=== PATIENT | female | born 1950 | race Caucasian/White ===

== ENCOUNTER → 2016-11-03 | Outpatient (CLI) | payer MEDICARE ==
--- NOTE | 2016-11-03 11:44 | US ---
EXAMINATION TYPE: US carotid duplex BILAT DATE OF EXAM: 11/03/2016 9:54 AM COMPARISON: NONE CLINICAL HISTORY: 66-year-old female I65.29 STENOSIS OF UNSPECIFIED CAROTID ARTERY. No symptoms, no h /o stroke. TECHNIQUE: Carotid duplex ultrasound examination. Indirect Doppler criteria was utilized. FINDINGS: Engel scale images show mild atherosclerotic plaque at both bifurcations. EXAM MEASUREMENTS: RIGHT: Peak Systolic Velocity (PSV) cm/sec ----- Right CCA: 85.6 ----- Right ICA: 113.1 ----- Right ECA: 99.5 ICA/CCA ratio: 1.3 RIGHT: End Diastole cm/sec ----- Right CCA: 30.8 ----- Right ICA: 23.7 ----- Right ECA: 20.2 LEFT: Peak Systolic Velocity (PSV) cm/sec ----- Left CCA: 79.3 ----- Left ICA: 96.1 ----- Left ECA: 87.7 ICA/CCA ratio: 1.2 LEFT: End Diastole cm/sec ----- Left CCA: 26.6 ----- Left ICA: 38.2 ----- Left ECA: 14.0 VERTEBRALS (direction of flow): Right Vertebral: Antegrade Left Vertebral: Antegrade IMPRESSION: No hemodynamically significant stenosis appreciated in either internal carotid artery. Criteria for Assigning % of Stenosis / Diameter reduction (Estimation based on the indirect measurements of the internal carotid artery velocities (ICA PSV). 1. Normal (no stenosis)=ICA PSV < 125 cm/s: ratio < 2.0: ICA EDV<40 cm/s. 2. Less than 50% stenosis=ICA PSV < 125 cm/s: ratio < 2.0: ICA EDV<40 cm/s. 3. 50 to 69% stenosis=ICA PSV of 125 to 230 cm/s: ration 2.0 ? 4.0: ICA EDV 40-100 cm/s. 4. Greater than 70% stenosis to near occlusion= ICA PSV > 230 cm/s: ratio > 4.0: ICA EDV > 100 cm/s. 5. Near occlusion= ICA PSV velocities may be low or undetectable: variable ratio and ICA EDV. 6. Total occlusion=unable to detect flow.
== END | disposition home or self-care (01) ==
LOC: RADUSWWP 09:31
PROVIDERS: ATTEND Family Medicine
DX: I65.29 Occlusion and stenosis of unspecified carotid artery (principal)
CPT/HCPCS: 93880

== ENCOUNTER → 2017-05-18 | Outpatient (CLI) | payer MEDICARE ==
--- NOTE | 2017-05-18 10:15 | BD ---
EXAMINATION TYPE: MG DEXA axial skeleton. DATE OF EXAM: 05/18/2017 COMPARISON: 03/27/2015 CLINICAL HISTORY: 66-year-old female osteopenia Height: 62.7 IN Weight: 178 LBS FRAX RISK QUESTIONS: Alcohol (3 or more units per day): NO Family History (Parent hip fracture): NO Glucocorticoids (More than 3mos): NO (Ex: prednisone, prednisolone, methylprednisolone, dexamethasone, and hydrocortisone). History of Fracture in Adulthood: YES RT ANKLE AGE 64 Secondary Osteoporosis: 1. Type 1 Diabetes: NO 2. Hyperthyroidism: NO 3. Menopause before 45: YES HYSTERECTOMY AGE 31 4. Malnutrition: NO 5. Chronic liver disease: NO Rheumatoid Arthritis: NO Current Tobacco Use: NO RISK FACTORS HISTORY OF: Surgery to Spine: YES L SPINE When: 2 SURGERIES ONE 30 YEARS AGO AND THEN 20 YEARS AGO Active: YES Postmenopausal woman: YES AGE 31 Lost more than 2 inches in height since high school: YES 3" MEDICATIONS: Additional Medications: VIT D, LISINOPRIL, NORCO, PRILOSEC EXAM MEASUREMENTS: Bone mineral densitometry was performed using the [employer] System. PT HAD 2 L SPINE SURGERIES. Bone mineral density about the R hip (g/cm2): 0.819 Bone mineral density about the L hip (g/cm2): 0.829 T Score values are as follows: -----R Neck: -1.6 -----L Neck: -1.5 -----R Total: -1.6 -----L Total: -1.3 Bone mineral density has: Increased 0.9% since study of: 03/27/2015 IMPRESSION: Osteopenia (T Score between -2.5 and -1 as noted by T score values in both hips). There is slightly increased risk of fracture and the patient may be considered for treatment. Re-Screen 2-5 years. NOTE: T-SCORE=SD OF THE YOUNG ADULT MEAN.
--- NOTE | 2017-05-18 11:19 | MM ---
Reason for exam: screening (asymptomatic). Last mammogram was performed 1 year and 1 month ago. History: Patient is postmenopausal and is nulliparous. Family history of breast cancer in mother at age 50. Benign excisional biopsy of the right breast, 1979. Took estrogen for 1 year beginning at age 39. Physical Findings: A clinical breast exam by your physician is recommended on an annual basis and results should be correlated with mammographic findings. MG 3D Screening Mammo W/Cad Bilateral CC and MLO view(s) were taken. Prior study comparison: April 30, 2016, bilateral MG 3d screening mammo w/cad. March 27, 2015, bilateral MG screening mammo w CAD. There are scattered fibroglandular densities. No significant changes when compared with prior studies. ASSESSMENT: Benign, BI-RAD 2 RECOMMENDATION: Routine screening mammogram of both breasts in 1 year.
== END | disposition home or self-care (01) ==
LOC: RADMAMWWP 07:03
PROVIDERS: ATTEND Family Medicine
DX: Z12.31 Encounter for screening mammogram for malignant neoplasm of breast (principal); M85.88 Other specified disorders of bone density and structure, other site
CPT/HCPCS: 77080; 77063; G0202

== ENCOUNTER → 2017-12-07 | Outpatient (CLI) | payer MEDICARE ==
--- NOTE | 2017-12-07 13:05 | NM ---
EXAMINATION TYPE: NM bone 3 phase DATE OF EXAM: 12/07/2017 COMPARISON: X-ray 11/27/2017 HISTORY: Painful left knee Triple phase bone scintigraphy was performed following the injection of 24.9 mCi Tc 99m MDP. Immedia te images and 3 hours post injection images acquired. FINDINGS: There are bilateral photopenic defects involving the knees. There is asymmetric increased blood flow to the left knee prostheses. There is increased soft tissue uptake on blood pool images. Delayed images demonstrate fairly symmetric uptake bilaterally. IMPRESSION: Findings are nonspecific. There is increased flow and soft tissue uptake surrounding the left knee. I f there is concern for loosening or infection correlate with WBCs tagged study.
== END | disposition home or self-care (01) ==
LOC: RADNMMAIN 06:48
PROVIDERS: ATTEND Orthopaedic Surgery
DX: R93.7 Abnormal findings on diagnostic imaging of other parts of musculoskeletal system (principal); T84.84XD Pain due to internal orthopedic prosthetic devices, implants and grafts, subsequent encounter; Z96.652 Presence of left artificial knee joint; Z88.0 Allergy status to penicillin
CPT/HCPCS: 78315; A9503

== ENCOUNTER → 2018-01-29 | Outpatient (CLI) | payer MEDICARE | END | disposition home or self-care (01) | LOC: LABPAT 09:54 | PROVIDERS: ATTEND Orthopaedic Surgery | DX: Z01.812 Encounter for preprocedural laboratory examination (principal) | CPT/HCPCS: 87070 ==

== ENCOUNTER 2018-02-08 07:30 | Inpatient (IN) | payer MEDICARE ==
[2018-01-28 16:48] VITALS: BMI 29.8
--- NOTE | 2018-02-07 11:09 | HP ---
HISTORY AND PHYSICAL REASON FOR ADMISSION: Surgery scheduled for 02/08/2018 Fern Real is a 67-year-old patient seen with painful left total knee arthroplasty. Treatment options were discussed with her. She elected to proceed with revision. Consent was obtained. Preoperative medical clearance was provided by Dr. Mauro Saldivar. PAST MEDICAL HISTORY: Hypertension, gastroesophageal reflux disease. PAST SURGICAL HISTORY: Bilateral total knee arthroplasty, bilateral shoulder surgery, spine surgery. MEDICATIONS: 1. Lisinopril. 2. Prilosec. ALLERGIES: PENICILLIN. SOCIAL HISTORY: Patient denies current tobacco use. PHYSICAL EXAMINATION: Physical evaluation of her left knee, she has a well-healed anterior incision. There is no evidence for erythema, hyperemia, or infective process. There is no effusion present. She has some diffuse tenderness along the medial lateral joint lines and diffusely along the distal femur and proximal tibia. Range of motion is -17 to 90. Her collateral ligaments appear stable. Her distal neurovascular exam is intact. Hip rotation is without pain. RADIOGRAPHS: Radiographs of the left knee revealed a total knee arthroplasty with loosening and lucencies around the femoral component and bone loss there. We also obtained a bone scan of the left knee reveals some increased uptake. IMPRESSION: 1. Painful left total knee arthroplasty. 2. Hypertension. 3. Gastroesophageal reflux disease. PLAN: Revision left total knee arthroplasty. Surgery 02/08/2018. MMODL / IJN: [id number] /
[~2018-02-08 07:30] MED LIST: ACETAMINOPHEN TAB 500 MG TAB PO ONE; DEXAMETHASONE SOD PHOSPHATE 10 MG/ML 1 ML VIAL IV ONE; HYDROmorphone 0.5 MG/0.5 ML SYRINGE IVP PRN; LACTATED RINGERS 1,000 ML IV SCH; MELOXICAM 7.5 MG TAB PO ONE; MIDAZOLAM 2 MG/2 ML VIAL IV PRN; ONDANSETRON 4 MG/2 ML VIAL IVP ONE; TRANEXAMIC ACID 1,000 MG in SODIUM CHLORIDE 0.9% 50 ML IVPB ONE; ceFAZolin IN SWFI 2 GM/20 ML SYRINGE IVP ONE
[2018-02-08] MEDS ORDERED: LIDOCAINE 1% 20 ML VIAL (10MG/ML) FOR IV START INTRADERMA ONE (12:43)
[2018-02-08] MEDS ORDERED: ROPIVACAINE 246.25 MG, EPINEPHrine 0.5 MG, KETOROLAC 30 MG, cloNIDine HCL/PF 80 MCG, WA... MISCELLANE ONE ×5 (13:47)
[2018-02-08] MEDS ORDERED: fentaNYL (PF) 50 MCG/ML 2 ML AMP ONE (13:52)
[2018-02-08] MEDS ORDERED: LIDOCAINE 1% INJ 10MG/ML (20 ML MDV) ONE (13:52)
[2018-02-08] MEDS ORDERED: SODIUM CHLORIDE 0.9% 100 ML BAG ONE (13:52)
[2018-02-08] MEDS ORDERED: MIDAZOLAM 2 MG/2 ML VIAL ONE (13:52)
[2018-02-08] MEDS ORDERED: TRANEXAMIC ACID 1,000 MG/10 ML VIAL ONE (13:52)
[2018-02-08] MEDS ORDERED: PROPOFOL 10 MG/ML 20 ML VIAL IV ONE (13:52)
[2018-02-08] MEDS ORDERED: diphenhydrAMINE 50 MG/ML 1 ML VIAL ONE (13:52)
[2018-02-08] MEDS ORDERED: CLINDAMYCIN 1,800 MG in SODIUM CHLORIDE 0.9% IRRIGATIO 3,000 ML IRRIGATION ONE (14:30)
--- NOTE | 2018-02-08 14:52 | P.ONQ ---
Anesthesiology Proc Note - PNB - Peripheral Nerve Block Performed Left Adductor Canal Infusion Time Out Performed: Yes Procedure Start Time: 13:01 Procedure Stop Time: 13:15 Indication: Acute Post-Operative Pain Sedation Type: Sedate with meaningful contact maintained Preparation: Sterile Dressing Position: Supine Catheter: Indwelling Needle Types: On-Q Needle Size: 100mm (4") Needle Gauge: 21 Technique: Ultrasound Injectate: 0.5% Ropivacaine (see comment for volume) (ropi .5% 30cc) Blood Aspirated: No Pain Paresthesia on Injection Noted: No Resistance on Injection: Normal Events: Uneventful and Well Tolerated
[2018-02-08] MEDS ORDERED: ROPIVACAINE 1,100 MG, SODIUM CHLORIDE 0.9% 330 ML MISCELLANE PRN ×2 (16:58)
[2018-02-08] MEDS ORDERED: HYDROmorphone 1 MG/ML 1 ML SYRINGE IVP PRN ×2 (17:06)
[2018-02-08] MEDS ORDERED: NALOXONE 0.4 MG/ML 1 ML VIAL IV PRN (17:06)
[2018-02-08] MEDS ORDERED: ONDANSETRON 4 MG/2 ML VIAL IVP PRN (17:06)
--- NOTE | 2018-02-08 17:06 | P.OP ---
Date of Procedure: 02/08/18 Preoperative Diagnosis: Painful left total knee arthroplasty Postoperative Diagnosis: Painful left total knee arthroplasty with loosening of the femoral component Procedure(s) Performed: Revision left total knee arthroplasty Implants: 1. Depuy Sigma TC 3 cemented size 3 left femur with universal full porous 31 mm femoral sleeve and 75 mm by 16 mm [place] stem fluted with bilateral 8 mm distal augments and posterior lateral 4 mm augment 2. Depuy MBT revision tibial tray cemented size 4 15 millimeter with 45 mm MBT revision metaphyseal porous sleeve and 75 mm x 14 mm universal stemmed flipped 3. Depuy Sigma polyethylene tibial insert rotating platform TC 3 size 310 mm Anesthesia: regional (Adductor canal catheter), local, spinal Surgeon: Saravanan Dubois Welder Fitter Helper #1: Vj Rosales Estimated Blood Loss (ml): 75 Pathology: none sent Condition: stable Disposition: PACU Indications for Procedure: 67-year-old patient seen with persistent painful left total knee arthroplasty. We discussed treatment options, she elected to proceed with revision. Consent regarding the procedure was obtained. Operative Findings: see description of procedure Description of Procedure: The patient was taken to the operative suite after having and adductor canal catheter placed by the department of anesthesia. The patient underwent a spinal anesthetic by the department of anesthesia. The patient had received preoperative IV antibiotics. A well-padded tourniquet was placed proximal left thigh. The left lower extremity was now prepped and draped in the normal sterile orthopedic fashion. We used an Esmarch. The extremity was elevated. Tourniquet insufflated to 350. An incision over the previous cicatrix sharply through skin. Dissection taken down to the extensor mechanism. A medial arthrotomy was performed. There was some serous fluid. No abnormal looking fluid. The knee was flexed. There was significant scar tissue throughout the which I meticulously debrided out. I now placed retractors along the proximal and lateral aspect of the knee. The femur appeared loose and with a couple small sawcut's distally was extracted without difficulty. There was significant osteolysis and bone loss posteriorly anteriorly about the femur. There was significant scar tissue and fibrous tissue throughout the distal femur at the areas of the implant bone interface. This was meticulously debrided out. The polyethylene tray was removed without difficulty. The tibial tray was well fixed. I began using thin saw blades well Demetrio GRAJEDA help with exposure in this very scarred up knee. We were finally able loosen the tibial tray and removed it noting substantial bone loss posteriorly. At this point we began reaming the proximal tibia and distal femur. We reached a 16 a distal femur 14 proximal tibia. We now made a freshen up cut after inserting the sleeve into the tibia for a 4 sleeve component. A flush cut/ freshen up cut was made. I now introduced my distal femoral cutting guide. Demetrio GRAJEDA held it with the appropriate rotation while I pinned in place. It looks like. Need posterior augments at 8 mm and a distal lateral augment at 4 mm and freshen up cuts were made distally to accommodate this. We now placed a trial components utilizing an elevated tibial baseplate and a 10 mm polyethylene trial. I took the knee through range of motion. We had good overall stability with full range of motion in the previous patella which was stable appeared to track nicely. We will took off our trial components and marked off the appropriate rotation of our sleeves. We now irrigated the wound out copiously with pulse lavage mechanical irrigation. We infiltrated the posterior capsule with local analgesic. We opened up all the implants. With the assistance of Demetrio GRAJEDA we put together the complicated revision components on the back table including sleeves stems and augments. Once they were all prepared we began mixing antibiotic methylmethacrylate. Once the methyl methacrylate was ready exposure was gained with the appropriate retraction provided by Demetrio GRAJEDA. I inserted the tibial tray placing a beat of methyl methacrylate around the rim for initial fixation as this was a porous coated sleeve component as well. I reintroduced my 10 mm TC 3 polyethylene tibial rotating tray. I'll placement methacrylate along the distal femoral component avoiding any placement on the sleeve. With the assistance of Demetrio GRAJEDA flex and the knee was able inserted the femoral component and tapped that down in position. We removed excess methyl methacrylate. We took the knee into full extension and back into full flexion making sure all excess methylmethacrylate was removed. We now kept the knee in full extension until the methyl methacrylate had complete hardened. Once it hardened the tourniquet was released. A second gram of TXA was given. The wound was again irrigated with pulse lavage mechanical irrigation. We took the knee through range of motion with good stability and good tracking the patella. There was good hemostasis. The extensor mechanism was repaired with #3 Vicryl. We checked the repair and was stable. The subcu soft tissues and our. Layers of 2-0 Vicryl. The skin was approximated with subcutaneous strata fix and Dermabond/pernio. Sterile dressings were applied. The patient was awakened , transferred to a bed and then recovery stable condition. Demetrio GRAJEDA assisted in this complex procedure.
--- NOTE | 2018-02-08 18:02 | XR ---
EXAMINATION TYPE: XR knee limited LT DATE OF EXAM: 02/08/2018 COMPARISON: 11/27/2017 HISTORY: Postop TECHNIQUE: 2 views FINDINGS: There is a left total knee revised prosthesis. Components are in anatomic position. IMPRESSION: Knee prosthesis without evidence of comp attending process.
[2018-02-08] MEDS: HYDROmorphone 1 MG/ML 1 ML SYRINGE IVP PRN ×2 (18:20→21:36)
[2018-02-08] MEDS: traMADol 50 MG TAB PO SCH ×2 (18:54→22:21)
[2018-02-08] MEDS: LACTATED RINGERS 1,000 ML IV SCH (18:55)
[2018-02-08] MEDS: SENNOSIDES-DOCUSATE SODIUM 1 EACH TAB PO SCH (21:37)
[2018-02-09] MEDS: ceFAZolin IN SWFI 2 GM/20 ML SYRINGE IVP SCH ×2 (00:22→08:51)
[2018-02-09] MEDS: LACTATED RINGERS 1,000 ML IV SCH ×2 (03:15→08:46)
--- NOTE | 2018-02-09 06:25 | P.PN ---
Progress Note - Text Progress Note Date: 02/09/18 67-year-old female status post revision of left total knee arthroplasty. Postoperative day #1 adductor catheter day #2. Patient's doing well pain is a 4 /10. Mostly on the anterior and lateral aspects of the knee. She does have some complaints of calf muscle pain. Patient is ambulating. Doing well. Last to maintain with adductor canal catheter at current settings
[2018-02-09] MEDS: HYDROmorphone 1 MG/ML 1 ML SYRINGE IVP PRN ×2 (06:28→11:48)
[2018-02-09 07:44] LABS: Calcium 8.9 mg/dL (8.4-10.2); Potassium 4.5 mmol/L (3.5-5.1)
[2018-02-09 07:51] LABS: Basophils % (A) 0 %; Eosinophils % (A) 0 %; HCT 33.3 % (34.0-46.0); HGB 10.4 gm/dL (11.4-16.0); Lymphocytes # (A) 1.5 k/uL (1.0-4.8); Lymphocytes % (A) 12 %; MCH 28.7 pg (25.0-35.0); MCHC 31.4 g/dL (31.0-37.0); MCV 91.3 fL (80.0-100.0); Mean Platelet Volume 7.2; Monocytes # (A) 0.9 k/uL (0-1.0); Monocytes % (A) 7 %; Neutrophils # (A) 9.8 k/uL (1.3-7.7); Neutrophils % (A) 80 %; Platelet Count 265 k/uL (150-450); RBC 3.65 m/uL (3.80-5.40); RDW 12.8 % (11.5-15.5); WBC 12.3 k/uL (3.8-10.6)
--- NOTE | 2018-02-09 08:17 | CONS ---
CONSULTATION REASON FOR CONSULTATION: Advice regarding hypertension, multiple medical issues requested by Dr. Dubois. HISTORY OF PRESENT ILLNESS: This 61-year-old woman with a past medical history of hypertension, history of DJD, history of back surgery being followed by Dr. Saldivar in the outpatient setting underwent a left total knee arthroplasty by Dr. Dubois. There is no history of fever, rigors or chills. No history of headache, loss of consciousness, seizures. PAST MEDICAL HISTORY: GERD, hypertension, DJD, history of back surgery. MEDICATIONS: Home medications are: 1. Prilosec 20 mg b.i.d. 2. Multivitamin daily. 3. Zestril 5 mg p.o. daily. 4. [place] 10 mg q.4-6 p.r.n. 5. Vitamin D3 2000. 6. Aspirin 81 mg daily. ALLERGIES: PENICILLIN. FAMILY HISTORY: History of breast cancer in the family. SOCIAL HISTORY: No history of smoking, occasional alcohol intake. REVIEW OF SYSTEMS: ENT: No diminished vision. No diminished hearing. Cardiovascular: No angina or palpitations. RESPIRATORY: No cough or hemoptysis. GI: No nausea or vomiting. : No dysuria. NERVOUS SYSTEM: No numbness or weakness. ALLERGY/IMMUNOLOGY: No asthma or hayfever. MUSCULOSKELETAL: As mentioned earlier. Hematology/Oncology: No history of anemia. ENDOCRINE: No history of diabetes or hypothyroidism. Constitutional: As mentioned earlier. Dermatology: Negative. Rheumatology: Negative. Psychiatry: As mentioned earlier. PHYSICAL EXAMINATION: Alert and oriented times three. Pulse 98, blood pressure 126/82, respiration 16 , temperature 97.8, pulse ox 98 percent on room air. HEENT: Conjunctivae normal. Oral mucosa moist. Neck is no jugular venous distention. No carotid bruit. No lymph node enlargement. Cardiovascular systems: S1, S2. Respirations: Breath sounds diminished the bases. No rhonchi. No crackles. ABDOMEN: Soft, nontender. Legs status post knee surgery. NERVOUS SYSTEM: Higher functions as mentioned earlier. Moves all four extremities. No focal deficits. Lymphatics: No lymph nodes palpable in the neck, axillae or groin. Skin: No ulcer, rash or bleeding. LABORATORY DATA: Recent labs are not available. Creatinine is 1.1. ASSESSMENT: 1. Status post left total knee joint arthroplasty. 2. Gastroesophageal reflux disease. 3. Hypertension. 4. History of degenerative joint disease. 5. History of back surgery. RECOMMENDATIONS AND DISCUSSION: In this 67-year-old woman who presented with multiple medical problems, at this time, I recommend to continue current medications, management and symptomatic treatment. I recommend to resume home medications. I would also recommend incentive spirometry, DVT prophylaxis. Also recommend repeat labs in the morning and continue to monitor. The patient may be asked to follow up with primary physician closely. Thank you, Dr. Dubois, for letting us participate in the care of this patient. MMODL / IJN: [id number] / MTDD
[2018-02-09] MEDS: CHOLECALCIFEROL 1,000 UNIT TAB PO SCH (08:50)
[2018-02-09] MEDS: PANTOPRAZOLE 40 MG TABLET PO SCH (08:50)
[2018-02-09] MEDS: ASPIRIN 81 MG PO SCH (08:50)
[2018-02-09] MEDS: LISINOPRIL 5 MG TAB PO SCH (08:50)
[2018-02-09] MEDS: traMADol 50 MG TAB PO SCH ×3 (08:50→17:20)
[2018-02-09] MEDS: ENOXAPARIN 30 MG/0.3 ML SYRINGE SQ SCH ×2 (08:50→20:22)
[2018-02-09] MEDS: MULTIVITAMINS, THERA 1 EACH TAB PO SCH (08:51)
[2018-02-09] MEDS ORDERED: HYDROcodone/APAP 10-325MG 1 EACH TAB PO PRN (14:25)
[2018-02-09] MEDS: hydrOXYzine PAMOATE 25 MG CAP PO PRN ×2 (15:25→20:21)
[2018-02-09] MEDS: HYDROcodone/APAP 10-325MG 1 EACH TAB PO PRN ×2 (15:25→20:21)
[2018-02-09 16:16] LABS: Appearance,Urine Clear (Clear); Bilirubin,Urine Negative (Negative); Blood,Urine Negative (Negative); Color,Urine Light Yellow; Glucose,Urine (UA) Negative (Negative); Ketones,Urine Negative (Negative); Leukocyte Esterase,Urine Negative (Negative); Nitrite,Urine Negative (Negative); PH, Urine 5.5 (5.0-8.0); Protein,Urine Negative (Negative); Specific Gravity,Urine 1.008 (1.001-1.035); Urobilinogen,Urine <2.0 mg/dL (<2.0)
--- NOTE | 2018-02-09 17:01 | P.PN ---
Subjective Progress Note Date: 02/09/18 Principal diagnosis: Status post revision left total knee arthroplasty Patient seen today resting in her hospital bed, she appears comfortable. She has had some increase in pain. She denies any headaches, lightheadedness, chest pain or shortness of breath. Objective - Vital Signs Vital signs: Vital Signs Temp 98.5 F 02/09/18 15:00 Pulse 85 02/09/18 15:00 Resp 12 02/09/18 15:00 BP 121/78 02/09/18 15:00 Pulse Ox 97 02/09/18 15:00 Intake & Output 02/08/18 02/09/18 02/09/18 18:59 06:59 18:59 Intake Total 901 2060 200 Output Total 75 Balance 826 2060 200 Weight 83.915 kg Intake: IV 901 Intake, IV Titration 920 Amount Lactated Ringers 1,000 ml 920 @ 100 mls/hr IV .Q10H [facility] Rx#:[id number] Oral 1140 200 Output: Estimated Blood Loss 75 Other: Voiding Method Toilet Toilet # Voids 1 1 - Exam Left lower extremity: Incision is clean, dry, and intact. The prineo tape is in good condition. There is minimal soft tissue swelling and ecchymosis surrounding the medial and lateral aspects of the incision. Calf is soft, no tenderness with palpation. Plantar flexion, dorsiflexion, EHL, FHL are intact. Sensory exam to light touch throughout the extremity is intact, dorsal pedis pulses 2+. - Labs CBC & Chem 7: 02/09/18 06:23 02/09/18 06:23 Labs: Abnormal Lab Results - Last 24 Hours (Table) 02/09/18 Range/Units 06:23 WBC 12.3 H (3.8-10.6) k/uL RBC 3.65 L (3.80-5.40) m/uL Hgb 10.4 L (11.4-16.0) gm/dL Hct 33.3 L (34.0-46.0) % Neutrophils # 9.8 H (1.3-7.7) k/uL Assessment and Plan Plan: Assessment: Postop day 1 status post revision left total knee arthroplasty Plan: Pain control, utilize oral medication and IV medication as needed GI and DVT prophylaxis, continue subcu medication Daily dressing changes Encourage incentive spirometer Continue work physical therapy Medical recommendations Discharge planning: Patient will be discharged home tomorrow Time with Patient: Less than 30
--- NOTE | 2018-02-09 17:41 | PN ---
PROGRESS NOTE DATE OF SERVICE: 02/09/2018 INTERVAL HISTORY: This 67-year-old woman who was admitted after total knee arthroplasty is improving significantly. No chest pain. No palpitations. No fever. EXAM: Alert and oriented x3. Pulse is 84. Blood pressure 120/70, respiration 17, temperature 98.2, pulse ox 98 percent on room air. HEENT: Conjunctivae normal. NECK: No jugular venous distention. CARDIOVASCULAR: S1, S2. RESPIRATORY: Breath sounds diminished in the bases. A few scattered rhonchi and crackles. Abdomen is soft, nontender. Legs are no edema, no swelling. LAB STUDIES: WBC 4.8, hemoglobin 10.4. ASSESSMENT: 1. Status post left total knee arthroplasty. 2. Gastroesophageal reflux disease. 3. Hypertension. 4. History of degenerative joint disease. 5. History of back surgery. RECOMMENDATIONS AND DISCUSSION: Recommend to continue current medications, management and continue to monitor, symptomatic treatment. Otherwise, at this time, continue the pain medication. Increase ambulation. DVT prophylaxis. Further recommendations to follow. MMODL / IJN: [id number] /
[2018-02-09] MEDS: SENNOSIDES-DOCUSATE SODIUM 1 EACH TAB PO SCH (20:20)
[2018-02-10] MEDS: HYDROmorphone 1 MG/ML 1 ML SYRINGE IVP PRN (01:58)
[2018-02-10] MEDS: traMADol 50 MG TAB PO SCH ×3 (03:34→13:46)
[2018-02-10] MEDS: LACTATED RINGERS 1,000 ML IV SCH ×2 (03:35→09:26)
--- NOTE | 2018-02-10 05:24 | P.PN ---
Progress Note - Text Progress Note Date: 02/10/18 67-year-old female status post revision of left total knee arthroplasty. Postoperative day #2 adductor catheter day #3. Patient's doing well pain is a 3 /10. Mostly on the anterior and lateral aspects of the knee. She does have some complaints of calf muscle pain. Patient is ambulating, RN reporting patient requiring minimal narcotics and is comfortable this morning. Doing well. Plan is to maintain with adductor canal catheter at current settings
[2018-02-10] MEDS: hydrOXYzine PAMOATE 25 MG CAP PO PRN ×2 (06:33→12:19)
[2018-02-10] MEDS: HYDROcodone/APAP 10-325MG 1 EACH TAB PO PRN ×2 (06:33→12:19)
[2018-02-10 08:12] VITALS: BP 122/68; PULSE 64; RESP 12; TEMP 97.8
[2018-02-10] MEDS: MULTIVITAMINS, THERA 1 EACH TAB PO SCH (09:24)
[2018-02-10] MEDS: LISINOPRIL 5 MG TAB PO SCH (09:24)
[2018-02-10] MEDS: CHOLECALCIFEROL 1,000 UNIT TAB PO SCH (09:24)
[2018-02-10] MEDS: PANTOPRAZOLE 40 MG TABLET PO SCH (09:24)
[2018-02-10] MEDS: ASPIRIN 81 MG PO SCH (09:25)
[2018-02-10] MEDS: ENOXAPARIN 30 MG/0.3 ML SYRINGE SQ SCH (09:25)
--- NOTE | 2018-02-10 10:45 | P.PN ---
Subjective Progress Note Date: 02/10/18 Principal diagnosis: Status post revision left total knee arthroplasty Patient seen today resting in her hospital bed, she appears comfortable. She has had some increase in pain. She denies any headaches, lightheadedness, chest pain or shortness of breath. Objective - Vital Signs Vital signs: Vital Signs Temp 97.8 F 02/10/18 07:00 Pulse 64 02/10/18 07:00 Resp 12 02/10/18 07:00 BP 122/68 02/10/18 07:00 Pulse Ox 97 02/10/18 07:00 Intake & Output 02/09/18 02/10/18 02/10/18 18:59 06:59 18:59 Intake Total 200 Balance 200 Intake: Oral 200 Other: Voiding Method Toilet Toilet # Voids 1 1 - Exam Left lower extremity: Incision is clean, dry, and intact. The prineo tape is in good condition. There is minimal soft tissue swelling and ecchymosis surrounding the medial and lateral aspects of the incision. Calf is soft, no tenderness with palpation. Plantar flexion, dorsiflexion, EHL, FHL are intact. Sensory exam to light touch throughout the extremity is intact, dorsal pedis pulses 2+. - Labs CBC & Chem 7: 02/09/18 06:23 02/09/18 06:23 Assessment and Plan Plan: Assessment: Postop day #2 status post revision left total knee arthroplasty Plan: Pain control, utilize oral medication and IV medication as needed GI and DVT prophylaxis, aspirin 325 mg twice a day of discharge Daily dressing changes Encourage incentive spirometer Continue work physical therapy Medical recommendations Discharge planning: We'll discharge home today Time with Patient: Less than 30
--- NOTE | 2018-02-10 10:48 | P.DS ---
Providers Date of admission: 02/08/18 11:58 Expected date of discharge: 02/10/18 Attending physician: Saravanan Dubois Consults: 02/08/18 17:06 Consult Physician Routine Consulting Provider: Josh Fernandez Consult Reason/Comments: Medical management Do you want consulting provider notified?: Yes Primary care physician: [facility] Course: Date of admission: 02/08/2018 Date of discharge: 02/10/2018 Admission diagnosis: Status post revision left total knee arthroplasty Discharge diagnosis: Same Attending physician: Dr. Dubois Surgical procedures: Revision left total knee arthroplasty Brief history: Patient is a 67-year-old female with a history of a previous left total knee arthroplasty. Patient had developed significant pain in the left knee over the last few months. She's tried other outpatient modalities which have not worked. She was scheduled for revision surgery on 02/08/2018. Hospital course: Details of patient's surgery can be found in operative report. Patient tolerated the procedure well and was subsequently transported to orthopedic floor. Patient's orthopeidc and medical care was provided daily. Patient had daily laboratory tests performed for evaluation of overall blood counts. Patient had daily physical therapy to include strengthening range of motion as well as education with walker ambulation. Patient had daily CPM usage as part of their physical therapy program. Patient was treated with Lovenox for their postoperative DVT prophylaxis during their inpatient stay. Patient was noted to have a relatively uneventful postoperative course. Patient reported satisfactory pain control with oral pain medications by postoperative day 0. Patient showed satisfactory progress with physical therapy. Patient moved steadily through the program and had no difficulty meeting the goals by postoperative day 2. Given patient's otherwise satisfactory course and having met physical therapy goals, plan is to discharge patient home on postoperative day 2. Discharge condition/disposition: Patient will be discharged home in stable condition. Discharge medications: Instructions are given on resumption of patient's normal daily medications per primary care recommendation, in addition patient will be prescribed tramadol 50 mg, aspirin 325 mg. Discharge instructions: 1. Wound care and infection precautions, keep incision dry and covered while showering, no lotions, creams, moisturizers. No soaking, tubs, pools, hottubs. Do not scrub over the incision. 2. Weight-bear as tolerated with walker / cane until follow-up. 3. Ice and elevate when necessary. Do not exceed 20 minutes per hour with ice pack. 4. Utilize compression sleeve until seen at first follow up appointment. 5. Visiting nursing care. 6. Home physical therapy including home CPM. 7. Pain meds and anticoagulants per prescription. 8. Pain medication has potential to cause constipation. Increase oral fluid and fiber intake. Contact primary care provider if you have not had a bowel movement within 48 hours after discharge 9. No anti-inflammatory medication until discussed at first post operative visit, this including Motrin, Aleve, Mobic, Diclofenac. 10. Follow up in office at 2 weeks postop with Demetrio Rosales PA-C 11. Follow up with your primary care doctor 7-10 days after discharge. 12. Contact [facility] with any questions, . Procedures: Revision left total knee arthroplasty Patient Condition at Discharge: Good Plan - Discharge Summary Discharge Rx Participant: Yes New Discharge Prescriptions: New Aspirin 325 mg PO BID #60 tab traMADol HCl [Ultram] 50 mg PO Q6H PRN #28 tab PRN Reason: Pain No Action Omeprazole [PriLOSEC] 20 mg PO DAILY Lisinopril [Zestril] 5 mg PO DAILY Aspirin 81 mg PO DAILY Cholecalciferol [Vitamin D3] 2,000 unit PO DAILY Multivitamins, Thera [Multivitamin (formulary)] 1 tab PO DAILY HYDROcodone/APAP 10-325MG [Plains 10] 1 - 2 tab PO Q4-6H PRN PRN Reason: Pain Discharge Medication List Lisinopril [Zestril] 5 mg PO DAILY 12/15/13 [History] Omeprazole [PriLOSEC] 20 mg PO DAILY 12/15/13 [History] Cholecalciferol [Vitamin D3] 2,000 unit PO DAILY 12/04/15 [History] HYDROcodone/APAP 10-325MG [Plains 10] 1 - 2 tab PO Q4-6H PRN 01/28/18 [History] Multivitamins, Thera [Multivitamin (formulary)] 1 tab PO DAILY 01/28/18 [History ] Aspirin 325 mg PO BID #60 tab 02/10/18 [Rx] traMADol HCl [Ultram] 50 mg PO Q6H PRN #28 tab 02/10/18 [Rx] Follow up Appointment(s)/Referral(s): [facility], [NON-STAFF] - Vj Rosales, PAC [PHYSICIAN [employer] P[employer]ER] - 2 Weeks Activity/Diet/Wound Care/Special Instructions: [facility] - [phone] - will deliver to bedside before discharge Orthopedic Discharge Instructions: 1. Wound care and infection precautions, keep incision dry and covered while showering, no lotions, creams, moisturizers. No soaking, pools, hot tubs. Do not scrub over incision. 2. Weight-bear as tolerated with walker / cane until follow-up. 3. Ice and elevate when necessary. Do not exceed 20 minutes per hour with ice pack. 4. Utilize compression sleeve until seen at first follow up appointment. 5. Pain meds and anticoagulants per prescription. 6. Pain medication has potential to cause constipation. Increase oral fluid and fiber intake. Contact primary care provider if you have not had a bowel movement within 48 hours after discharge. 7. No anti-inflammatory medication until discussed at first post operative visit, this including Motrin, Aleve, Mobic, Diclofenac. 8. Follow up in office at 2 weeks postop with Demetrio Rosales PA-C 9. Follow up with your primary care doctor 7-10 days after discharge. 10. Contact [facility] with any questions, . Discharge Disposition: HOME WITH HOME HEALTH SERVICES
--- NOTE | 2018-02-10 16:09 | PN ---
PROGRESS NOTE DATE OF SERVICE: 02/10/2018. INTERVAL HISTORY: This 67-year-old woman was admitted after left total knee arthroplasty, improved significantly. No chest pain. No palpitations. No fever. PHYSICAL EXAM: Alert and oriented times three. Pulse 64. Blood pressure 108/60. Respiration 12, temperature 97.8, pulse ox 97 percent on room air. HEENT: Conjunctivae normal. Oral mucosa moist. Neck is no jugular venous distention. No carotid bruit. No lymph node enlargement. Cardiovascular: S1, S2 muffled. Breath sounds diminished in the bases. No rhonchi. No crackles. ABDOMEN: Soft, nontender. No mass. Legs: Status post surgery. Central nervous system: No focal deficits. LAB STUDIES: WBC 12.2, hemoglobin is 10.4. ASSESSMENT: 1. Status post left total knee arthroplasty. 2. Gastroesophageal reflux disease. 3. Hypertension. 4. Degenerative joint disease. 5. History of back surgery. 6. Increased WBC. Possibly reactive. RECOMMENDATIONS AND DISCUSSION: Recommend to continue current medications, management and symptomatic treatment. Closely follow up with primary care physician in the outpatient setting. DVT prophylaxis. I would recommend follow with orthopedic surgery. Further recommendations to follow. MMODL / IJN: [id number] /
== END 2018-02-10 14:28 | disposition home health service (06) | DRG 468 ==
LOC: 2ORMAIN 11:58 → 3SUR 16:51
PROVIDERS: ADMIT Orthopaedic Surgery; ATTEND Orthopaedic Surgery
PROC: 0SRD0J9 Replacement of Left Knee Joint with Synthetic Substitute, Cemented, Open Approach (ICD-10-PCS; 2018-02-08)
PROC: 0SPD0JZ Removal of Synthetic Substitute from Left Knee Joint, Open Approach (ICD-10-PCS; principal; 2018-02-08 13:45)
DX: T84.033A Mechanical loosening of internal left knee prosthetic joint, initial encounter (principal); T84.84XA Pain due to internal orthopedic prosthetic devices, implants and grafts, initial encounter; I10 Essential (primary) hypertension; K21.9 Gastro-esophageal reflux disease without esophagitis; M19.90 Unspecified osteoarthritis, unspecified site; Y83.1 Surgical operation with implant of artificial internal device as the cause of abnormal reaction of the patient, or of later complication, without mention of misadventure at the time of the procedure; Z79.82 Long term (current) use of aspirin; Z79.899 Other long term (current) drug therapy; Z96.653 Presence of artificial knee joint, bilateral; Z88.0 Allergy status to penicillin; Z80.3 Family history of malignant neoplasm of breast; D72.828 Other elevated white blood cell count
CPT/HCPCS: 80048; 81003; 85025

== ENCOUNTER → 2018-05-24 | Outpatient (CLI) | payer MEDICARE ==
--- NOTE | 2018-05-25 13:11 | MM ---
Reason for exam: screening (asymptomatic). Last mammogram was performed 1 year ago. History: Patient is postmenopausal and is nulliparous. Family history of breast cancer in mother at age 50. Benign excisional biopsy of the right breast, 1979. Took estrogen for 1 year beginning at age 39. Physical Findings: A clinical breast exam by your physician is recommended on an annual basis and results should be correlated with mammographic findings. MG 3D Screening Mammo W/Cad Bilateral CC and MLO view(s) were taken. Prior study comparison: May 18, 2017, bilateral MG 3d screening mammo w/cad. April 30, 2016, bilateral MG 3d screening mammo w/cad. No significant changes when compared with prior studies. ASSESSMENT: Benign, BI-RAD 2 RECOMMENDATION: Routine screening mammogram of both breasts in 1 year.
== END ==
LOC: RADMAMWWP 16:15
PROVIDERS: ATTEND Family Medicine
DX: Z12.31 Encounter for screening mammogram for malignant neoplasm of breast (principal)
CPT/HCPCS: 77063; 77067

== ENCOUNTER → 2019-05-31 | Outpatient (CLI) | payer MEDICARE ==
--- NOTE | 2019-05-31 16:04 | BD ---
EXAMINATION TYPE: Axial Bone Density DATE OF EXAM: 05/31/2019 COMPARISON: 05/18/2017 CLINICAL HISTORY: Postmenopausal female Height: 62.5 IN Weight: 183 LBS FRAX RISK QUESTIONS: History of Fracture in Adulthood: YES RT ANKLE RISK FACTORS HISTORY OF: Surgery to Spine/Wrist (right): When: LSPINE AGE 48; RT WRIST AGE 49 Active: YES Postmenopausal woman: TOTAL HYST AGE 46 Lost more than 2 inches in height since high school: YES 06/23" MEDICATIONS: Additional Medications: CALCIUM, VIT D, LISINOPRIL, HYDROCODONE EXAM MEASUREMENTS: Bone mineral densitometry was performed using the [employer] System. Bone mineral density about the R hip (g/cm2): 0.823 Bone mineral density about the L hip (g/cm2): 0.848 T Score values are as follows: -----R Neck: -1.5 -----L Neck: -1.4 -----R Total: -1.5 -----L Total: -1.5 Bone mineral density has: Decreased -0.6% since study of: 05/18/2017 Bone mineral density about the L Wrist (g/cm2): 0.633 T Score values are as follows: -----Dist. R+U: 0.0 -----Prox. R+U: 0.2 -----Radius total: -0.7 Bone mineral density BASELINE IMPRESSION: Osteopenia (T Score between -2.5 and -1). There is slightly increased risk of fracture and the patient may be considered for treatment. Re-Screen 2-5 years. NOTE: T-SCORE=SD OF THE YOUNG ADULT MEAN.
--- NOTE | 2019-06-02 13:39 | MM ---
Reason for exam: screening (asymptomatic). Last mammogram was performed 1 year ago. History: Patient is postmenopausal and is nulliparous. Family history of breast cancer in mother at age 50. Benign excisional biopsy of the right breast, 1979. Took estrogen for 1 year beginning at age 39. Physical Findings: A clinical breast exam by your physician is recommended on an annual basis and results should be correlated with mammographic findings. MG 3D Screening Mammo W/Cad Bilateral CC and MLO view(s) were taken. Prior study comparison: May 24, 2018, bilateral MG 3d screening mammo w/cad. May 18, 2017, bilateral MG 3d screening mammo w/cad. The breast tissue is heterogeneously dense. This may lower the sensitivity of mammography. Stable benign calcifications. There is no discrete abnormality. No significant changes when compared with prior studies. ASSESSMENT: Benign, BI-RAD 2 RECOMMENDATION: Routine screening mammogram of both breasts in 1 year.
== END | disposition home or self-care (01) ==
LOC: RADMAMWWP 14:11
PROVIDERS: ATTEND Family Medicine
DX: Z12.31 Encounter for screening mammogram for malignant neoplasm of breast (principal); M85.80 Other specified disorders of bone density and structure, unspecified site
CPT/HCPCS: 77063; 77067; 77080

== ENCOUNTER → 2020-08-14 | Outpatient (CLI) | payer MEDICARE ==
--- NOTE | 2020-08-15 10:08 | MM ---
Reason for exam: screening (asymptomatic). Last mammogram was performed 1 year and 2 months ago. History: Patient is postmenopausal and is nulliparous. Family history of breast cancer in mother at age 50. Benign excisional biopsy of the right breast, 1979. Took estrogen for 1 year beginning at age 39. Physical Findings: A clinical breast exam by your physician is recommended on an annual basis and results should be correlated with mammographic findings. MG 3D Screening Mammo W/Cad Bilateral CC and MLO view(s) were taken. Prior study comparison: May 31, 2019, bilateral MG 3d screening mammo w/cad. May 24, 2018, bilateral MG 3d screening mammo w/cad. Benign appearing bilateral calcifications. No significant changes when compared with prior studies. ASSESSMENT: Benign, BI-RAD 2 RECOMMENDATION: Routine screening mammogram of both breasts in 1 year.
== END | disposition home or self-care (01) ==
LOC: RADMAMWWP 08:54
PROVIDERS: ATTEND Family Medicine
DX: Z12.31 Encounter for screening mammogram for malignant neoplasm of breast (principal)
CPT/HCPCS: 77063; 77067

== ENCOUNTER → 2021-09-19 | Outpatient (CLI) | payer MEDICARE ==
--- NOTE | 2021-09-20 09:40 | MM ---
Reason for exam: screening (asymptomatic). Last mammogram was performed 1 year and 1 month ago. History: Patient is postmenopausal, history of other cancer, and is nulliparous. Family history of breast cancer in mother at age 50. Benign excisional biopsy of the right breast, 1979. Took estrogen for 1 year beginning at age 39. Physical Findings: A clinical breast exam by your physician is recommended on an annual basis and results should be correlated with mammographic findings. MG 3D Screening Mammo W/Cad Bilateral CC and MLO view(s) were taken. Prior study comparison: August 14, 2020, bilateral MG 3d screening mammo w/cad. May 31, 2019, bilateral MG 3d screening mammo w/cad. No significant changes when compared with prior studies. ASSESSMENT: Negative, BI-RAD 1 RECOMMENDATION: Routine screening mammogram of both breasts in 1 year.
== END | disposition home or self-care (01) ==
LOC: RADMAMWWP 09:23
PROVIDERS: ATTEND Family Medicine
DX: Z12.31 Encounter for screening mammogram for malignant neoplasm of breast (principal); Z78.0 Asymptomatic menopausal state; Z80.3 Family history of malignant neoplasm of breast
CPT/HCPCS: 77063; 77067

== ENCOUNTER → 2022-09-24 | Outpatient (CLI) | payer MEDICARE ==
--- NOTE | 2022-09-25 18:35 | MM ---
Reason for Exam: Screening (asymptomatic). Last mammogram was performed 1 year(s) and 1 month(s) ago. Patient History: Menarche at age 13. Patient has no children. Left ovary removed at age 39. Right ovary removed at age 39. Hysterectomy at age 39. Postmenopausal. Other cancer. Estrogen for 1 year from age 39 until age 40. 1980, Benign Excisional Biopsy on the right side. Mother had breast cancer, age 50. Risk Values: Jennifer 5 year model risk: 4.0%. NCI Lifetime model risk: 10.9%. Prior Study Comparison: 05/31/2019 Bilateral Screening Mammogram, [facility]. 08/14/2020 Bilateral Screening Mammogram, [facility]. 09/19/2021 Bilateral Screening Mammogram, [facility]. Tissue Density: There are scattered fibroglandular densities. Findings: Analyzed By CAD. There is no suspicious group of microcalcifications or new suspicious mass in either breast. Overall Assessment: Negative, BI-RAD 1 Management: Screening Mammogram of both breasts in 1 year. 1. Note that per NCCN guidelines, a five-year risk assessment greater than 1.67% is used to assess eligibility for a risk reducing agent. 2. Patient should continue monthly self breast exams. 3. This exam should not preclude additional follow-up of suspicious palpable abnormalities. Electronically signed and approved by: Ivis Anaya M.D. Radiologist
== END | disposition home or self-care (01) ==
LOC: RADMAMWWP 11:40
PROVIDERS: ATTEND Family Medicine
DX: Z12.31 Encounter for screening mammogram for malignant neoplasm of breast (principal); Z78.0 Asymptomatic menopausal state; Z80.3 Family history of malignant neoplasm of breast
CPT/HCPCS: 77063; 77067

== ENCOUNTER → 2023-07-01 | Outpatient (CLI) | payer MEDICARE ==
--- NOTE | 2023-07-03 07:06 | MR ---
EXAMINATION TYPE: MR shoulder RT wo con DATE OF EXAM: 07/01/2023 COMPARISON: Outside right shoulder x-ray May 27, 2023 HISTORY: Right shoulder pain. TECHNIQUE: Multiplanar, multisequence imaging of the right shoulder is performed without contrast. FINDINGS: Rotator Cuff: Increased signal in the infraspinatus and to a greater degree the supraspinatus tendon with some surrounding fluid. Subscapularis tendon intact with surrounding fluid. Rotator cuff Muscle bulk is preserved. Acromioclavicular Joint: Widening of the acromioclavicular joint is suggestive of prior and partial d istal clavicular resection, correlate clinically. Glenohumeral Joint: Moderate size joint effusion. No significant spurring. Labrum: Heterogeneous increased signal superior labrum suggesting degenerative tearing coronal image 14. Biceps Tendon: The long head of biceps is in normal location within bicipital groove. Bone marrow signal: No focal abnormal marrow signal is appreciated. Other: No additional significant abnormality is appreciated. IMPRESSION: Superior labral tear may be degenerative in etiology. There is tendinosis/partial tearing of the supraspinatus and infraspinatus tendons. Suspect prior partial distal clavicular resection. C orrelate clinically. Moderate-sized glenohumeral joint effusion is noted.
== END | disposition home or self-care (01) ==
LOC: RADMRIMAIN 16:04
PROVIDERS: ATTEND Orthopaedic Surgery
DX: M67.813 Other specified disorders of tendon, right shoulder (principal); M75.111 Incomplete rotator cuff tear or rupture of right shoulder, not specified as traumatic; M25.411 Effusion, right shoulder

== ENCOUNTER → 2023-10-12 | Outpatient (CLI) | payer MEDICARE ==
--- NOTE | 2023-10-12 11:50 | BD ---
EXAMINATION TYPE: Axial Bone Density DATE OF EXAM: 10/12/2023 CLINICAL HISTORY: 73 years old Female. ICD-10 CODE: M85.80 OTH DISORDER OF BONE DENSITY AND STRUCTU RE Height: 65 Weight: 162 FRAX RISK QUESTIONS: Alcohol (3 or more units per day): no Family History (Parent hip fracture): no Glucocorticoids (More than 3mos): no (Ex: prednisone, prednisolone, methylprednisolone, dexamethasone, and hydrocortisone). History of Fracture in Adulthood: yes Secondary Osteoporosis: 1. Type 1 Diabetes: no 2. Hyperthyroidism: no 3. Menopause before 45: yes 4. Malnutrition: no 5. Chronic liver disease: no Rheumatoid Arthritis: no Current Tobacco Use: no RISK FACTORS HISTORY OF: History of Wrist Fracture: right When: age 48 Surgery to Spine/Hip(right/left)/Wrist (right/left): yes spine/ right wrist When: spine age 48 EXAM MEASUREMENTS: Bone mineral densitometry was performed using the [employer] System. Bone mineral density about the R hip (g/cm2): 0.758 Bone mineral density about the L hip (g/cm2): 0.802 T Score values are as follows: -----R Neck: -17 -----L Neck: -1.5 -----R Total: -2.0 -----L Total: -1.6 Z Score values are as follows: -----R Neck: -0.1 -----L Neck: 0.1 -----R Total: -0.6 -----L Total: -0.3 Bone mineral density has: decreased -5.1 % since study of: 2018 Bone mineral density about the L Wrist (g/cm2): 0.651 T Score values are as follows: -----Dist. R+U: -0.4 -----Prox. R+U: 0.6 -----Radius total: -0.4 Z Score values are as follows: -----Dist. R+U: 1.6 -----Prox. R+U: 2.6 -----Radius total: 1.6 Bone mineral density has: increased 4.0 % since study of: 2019 FRAX%s: The graph provided illustrates a 17.4% chance for a major osteoporotic fx and a 3.1% chance f or the hips probability for fx in 10 years time. IMPRESSION: Osteopenia (T Score between -2.5 and -1). There is slightly increased risk of fracture and the patient may be considered for treatment. Re-Screen 2-5 years. NOTE: T-SCORE=SD OF THE YOUNG ADULT MEAN.
--- NOTE | 2023-10-13 19:35 | MM ---
Reason for Exam: Screening (asymptomatic). Last screening mammogram was performed 12 month(s) ago. Patient History: Menarche at age 13. Patient has no children. Left ovary removed at age 39. Right ovary removed at age 39. Hysterectomy at age 39. Postmenopausal. Other cancer. Estrogen for 1 year from age 39 until age 40. 1979, Benign Excisional Biopsy on the right side. Mother had breast cancer, age 50. Risk Values: Jennifer 5 year model risk: 4.1%. NCI Lifetime model risk: 10.4%. Prior Study Comparison: 08/14/2020 Bilateral Screening Mammogram, [facility]. 09/19/2021 Bilateral Screening Mammogram, [facility]. 09/24/2022 Bilateral MG 3D screening mammo w/cad, [facility]. Tissue Density: There are scattered areas of fibroglandular density. Findings: Analyzed By CAD. There is no suspicious group of microcalcifications or new suspicious mass in either breast. Overall Assessment: Negative, BI-RAD 1 Management: Screening Mammogram of both breasts in 1 year. See note below in regards to the patient's increased 5 year Jennifer score. Patient should continue monthly self-breast exams. A clinical breast exam by your physician is recommended on an annual basis. This exam should not preclude additional follow-up of suspicious palpable abnormalities. Note on Jennifer scores and lifetime risk: 1. A Jennifer score greater than 3% is considered moderate risk. If this is the case, consider specialist referral to assess eligibility for a risk reducing agent. 2. If overall lifetime risk for the development of breast cancer is 20% or higher, the patient may qualify for future screening with alternating mammogram and breast MRI. Electronically signed and approved by: Ivis Anaya M.D. Radiologist
== END | disposition home or self-care (01) ==
LOC: RADMAMWWP 10:43
PROVIDERS: ATTEND Family Medicine
DX: Z12.31 Encounter for screening mammogram for malignant neoplasm of breast (principal); M85.89 Other specified disorders of bone density and structure, multiple sites; Z80.3 Family history of malignant neoplasm of breast; Z78.0 Asymptomatic menopausal state
CPT/HCPCS: 77063; 77067; 77080